=== PATIENT | female | born 1985 ===

== ENCOUNTER 2017-02-25 19:14 | Emergency (ER) | payer BC ==
--- NOTE | 2017-02-25 20:28 | OBHP ---
Datetime: 02/25/2017 20:26 IP Adm Impression Other: nst reactive IP Admit Plan: Discharge home Admit Comment, IP Provider: patient here for nst NST reactive discharge home follow up with dr bright in [address] Greenberg aware Pelvic Type - PN: Adequate Abdomen - PN: Normal Back - PN: Normal Lungs - PN: Normal Heart - PN: Normal Neurologic - PN: Normal General - PN: Normal EGA AdmitDate IP: 39.2 IP Chief Complaint: evaluation FHR Category Provider Fetus A: Category I
[2017-02-26 00:53] VITALS: BP 118/67; PULSE 73; RESP 20
== END 2017-02-25 20:20 | disposition home or self-care (01) ==
LOC: C.EROB 19:14
DX: Z36.9 Encounter for antenatal screening, unspecified (principal)